=== PATIENT | female | born 1985 | race Hispanic/Latino ===

== ENCOUNTER 2023-06-30 15:28 | Emergency (ER) | payer SELFPAY ==
[~2023-06-30] VITALS: Ht 139.7 cm; Wt 90.0 kg
[2023-06-30 16:09] LABS: BASO% 0.6 % (0-3); EOS% 3.7 % (0-8); HEMATOCRIT 35.1 % (37.0-47.0); HEMOGLOBIN 11.5 g/dl (12.0-16.0); IMMATURE GRANULOCYTES 0.1 % (0.0-5.0); LYMPH% 28.2 % (15-41); MEAN CELL VOLUME 90.2 fL CALC (80.0-100.0); MEAN CORPUSCULAR HGB 29.6 pG CALC (26.0-32.0); MEAN CORPUSCULAR HGB CONC 32.8 g/dL CAL (32.0-36.0); MONO% 5.3 % (2-13); NEUT# 6.27 thou/uL (2.00-7.15); NEUT% 62.1 % (42-76); RED BLOOD COUNT 3.89 mill/uL (4.20-5.60); RED CELL DISTRI WIDTH 13.5 % (11.5-15.5)
[2023-06-30 16:18] LABS: PROTHROMBIN TIME 9.6 SECONDS (9.0-12.5)
[2023-06-30 16:22] VITALS: BP 120/67
[2023-06-30 16:23] LABS: ALBUMIN 4.1 g/dL (3.2-5.0); ALKALINE PHOSPHATASE 70 u/l (38-126); ANION GAP 14 (6-22 (CALC)); BILIRUBIN, TOTAL 0.3 mg/dL (0.02-1.3); BUN 11 mg/dL (7-17); BUN/CREATININE RATIO 14 (12-20 (CALC)); CARBON DIOXIDE 23 mmol/l (22-30); CHLORIDE 107 mmol/l (95-108); CREATININE 0.8 mg/dL (0.5-1.0); GFR FOR AFR.AMER. > 60 ML/MIN (>=60 (CALC)); GFR OTHER RACES > 60 ML/MIN (>=60 (CALC)); SGOT/AST 44 u/l (14-36); SODIUM 139 mmol/l (137-146); TOTAL PROTEIN 6.9 g/dL (6.3-8.2)
[2023-06-30 16:31] VITALS: BP 107/65
[2023-06-30 17:00] VITALS: BP 103/70
[2023-06-30 17:02] VITALS: BP 103/70
== END 2023-06-30 16:50 | disposition home or self-care (01) | DRG 151 ==
LOC: ED 15:28
PROVIDERS: Family Medicine
DX: R04.0 Epistaxis (principal)

== ENCOUNTER 2024-04-05 23:30 | Emergency (ER) | payer SELFPAY ==
[~2024-04-05] VITALS: Ht 139.7 cm; Wt 72.0 kg
[2024-04-06] MEDS ORDERED: FLUORESCEIN SODIUM 1 MG EA OU ONE (00:05)
[2024-04-06] MEDS ORDERED: TETRACAINE HCL 0.5 %/4 ML SOL OU ONE (00:05)
[2024-04-06] MEDS ORDERED: GENTAMICIN0.3 % OD (00:15)
[2024-04-06] MEDS ORDERED: GENTAMICIN SULFATE (OPHTH) 5 ML BTL OD ONE (00:15)
[2024-04-06 00:52] VITALS: BP 124/87
== END 2024-04-06 00:52 | disposition home or self-care (01) | DRG 125 ==
LOC: ED 23:30
DX: S05.01XA Injury of conjunctiva and corneal abrasion without foreign body, right eye, initial encounter (principal); X58.XXXA Exposure to other specified factors, initial encounter

== ENCOUNTER 2024-06-01 21:54 | Emergency (ER) | payer SELFPAY ==
[2024-06-01] VITALS (7 sets, daily range): BP systolic 98–146; BP diastolic 52–79
[~2024-06-01] VITALS: Ht 139.7 cm; Wt 80.0 kg
[~2024-06-01 21:54] MED LIST: GENTAMICIN0.3 % OD
[2024-06-01] MEDS ORDERED: VOLTAREN - GENE75 MG PO (22:46)
== END 2024-06-01 23:22 | disposition home or self-care (01) | DRG 556 ==
LOC: ED 21:54
DX: M25.561 Pain in right knee (principal)